=== PATIENT | female | born 2000 | race Caucasian/White ===

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

== ENCOUNTER → 2020-01-15 09:23 | Outpatient (BNVA) | payer MEDICAID, SELFPAY | PROVIDERS: Family Provider Family Medicine; PCP Family Medicine; Visit Provider Obstetrics & Gynecology | DX: Z34.92 Encounter for supervision of normal pregnancy, unspecified, second trimester (principal); Z3A.20 20 weeks gestation of pregnancy | CPT/HCPCS: 76805 ==

== ENCOUNTER → 2020-02-13 13:07 | Outpatient (BNVA) | payer MEDICAID, SELFPAY | PROVIDERS: Family Provider Family Medicine; PCP Family Medicine; Visit Provider Obstetrics & Gynecology | DX: Z36.89 Encounter for other specified antenatal screening (principal) | CPT/HCPCS: 76816 ==

== ENCOUNTER → 2020-02-15 10:30 | Outpatient (BNVA) | payer MEDICAID, SELFPAY | PROVIDERS: Family Provider Family Medicine; PCP Family Medicine; Visit Provider Obstetrics & Gynecology | DX: O09.92 Supervision of high risk pregnancy, unspecified, second trimester (principal) | CPT/HCPCS: 82950; 84315 ==

== ENCOUNTER → 2020-03-13 10:31 | Outpatient (BNVA) | payer MEDICAID, SELFPAY | PROVIDERS: Family Provider Family Medicine; PCP Family Medicine; Visit Provider Obstetrics & Gynecology | DX: O09.93 Supervision of high risk pregnancy, unspecified, third trimester (principal) | CPT/HCPCS: 76816; 84315; 85027 ==

== ENCOUNTER → 2020-04-11 13:37 | Outpatient (BNVA) | payer MEDICAID, SELFPAY | PROVIDERS: Family Provider Family Medicine; PCP Family Medicine; Visit Provider Obstetrics & Gynecology | DX: Z34.90 Encounter for supervision of normal pregnancy, unspecified, unspecified trimester (principal) | CPT/HCPCS: 76816 ==

== ENCOUNTER 2020-04-11 15:25 | Outpatient (CLI) | payer MEDICAID, SELFPAY ==
[2020-04-11 15:36] VITALS: BP 133/65; PULSE 114
[2020-04-11 15:40] VITALS: RESP 18; TEMP 36.7
[2020-04-11 15:41] VITALS: BMI 53.4
[2020-04-11 15:58] VITALS: BP 131/59; PULSE 100
== END 2020-04-11 16:16 | disposition home or self-care (01) ==
LOC: OPOB 15:28 → OBGYN 15:29
PROVIDERS: Family Provider Family Medicine; PCP Family Medicine; Visit Provider Obstetrics & Gynecology
DX: O24.419 Gestational diabetes mellitus in pregnancy, unspecified control (principal); Z3A.00 Weeks of gestation of pregnancy not specified
CPT/HCPCS: 59025; 84315; 99211

== ENCOUNTER 2020-04-18 14:00 | Outpatient (CLI) | payer MEDICAID, SELFPAY ==
[2020-04-18 14:27] VITALS: BP 134/68; PULSE 109; RESP 18; TEMP 37
[2020-04-18 14:34] VITALS: BMI 54.6
[2020-04-18 14:41] VITALS: BP 126/64; PULSE 112
[2020-04-18 14:56] VITALS: BP 133/59; PULSE 101
--- NOTE | 2020-04-18 14:57 | PM.ACPR ---
NST (Non-Stress Test) NST Due date: 06/07/20 Gestational age (weeks): 33 Test: NST Fetus Fetus 1: Baseline FHR BMP:: 140 Variability: Moderate Accelerations: Present Decelerations: None Reacticity: Reactive Interpretation/Plan Interpretation by: Humphrey Christie Time Out Is a Time Out required?: No
[2020-04-18 15:01] VITALS: BP 133/59; PULSE 101; RESP 18; TEMP 37
== END 2020-04-18 15:00 | disposition home or self-care (01) ==
LOC: OPOB 14:16 → OBGYN 14:18
PROVIDERS: Family Provider Family Medicine; PCP Family Medicine; Visit Provider Obstetrics & Gynecology
DX: O24.419 Gestational diabetes mellitus in pregnancy, unspecified control (principal); Z3A.00 Weeks of gestation of pregnancy not specified
CPT/HCPCS: 12345; 59025

== ENCOUNTER 2020-04-25 14:47 | Outpatient (CLI) | payer MEDICAID, SELFPAY ==
[2020-04-25 15:13] VITALS: BP 91/51; PULSE 118
[2020-04-25 15:18] VITALS: BP 87/68; PULSE 112
[2020-04-25 15:30] VITALS: BMI 51.2
== END 2020-04-25 15:35 | disposition home or self-care (01) ==
LOC: OPOB 14:54 → OBGYN 04-28 09:46
PROVIDERS: Family Provider Family Medicine; PCP Family Medicine; Visit Provider Obstetrics & Gynecology
DX: O24.419 Gestational diabetes mellitus in pregnancy, unspecified control (principal); Z3A.00 Weeks of gestation of pregnancy not specified
CPT/HCPCS: 59025; 84315

== ENCOUNTER 2020-05-02 11:00 | Outpatient (CLI) | payer MEDICAID, SELFPAY ==
[2020-05-02 11:00] VITALS: BMI 52.7
[2020-05-02 11:10] VITALS: BP 119/56; PULSE 107
[2020-05-02 11:13] VITALS: RESP 17; TEMP 36.8
[2020-05-02 11:30] VITALS: BP 123/61; PULSE 107
== END 2020-05-02 11:40 | disposition home or self-care (01) ==
LOC: OPOB 11:05 → OBGYN 11:06
PROVIDERS: Family Provider Family Medicine; PCP Family Medicine; Visit Provider Obstetrics & Gynecology
DX: O24.419 Gestational diabetes mellitus in pregnancy, unspecified control (principal); Z3A.00 Weeks of gestation of pregnancy not specified
CPT/HCPCS: 59025; 99211

== ENCOUNTER → 2020-05-06 08:39 | Outpatient (BNVA) | payer MEDICAID, SELFPAY | PROVIDERS: Family Provider Family Medicine; PCP Family Medicine; Visit Provider Obstetrics & Gynecology | DX: O09.893 Supervision of other high risk pregnancies, third trimester (principal) | CPT/HCPCS: 76816; 76819 ==

== ENCOUNTER 2020-05-06 09:50 | Outpatient (CLI) | payer MEDICAID, SELFPAY ==
[2020-05-06 09:50] VITALS: BMI 54.6
[2020-05-06 10:00] VITALS: BP 132/63; PULSE 122; RESP 16; TEMP 36.7
[2020-05-06 10:21] VITALS: BP 103/44; PULSE 104
== END 2020-05-06 10:35 | disposition home or self-care (01) ==
LOC: OPOB 09:52 → OBGYN 09:55
PROVIDERS: Family Provider Family Medicine; PCP Family Medicine; Visit Provider Obstetrics & Gynecology
DX: O24.419 Gestational diabetes mellitus in pregnancy, unspecified control (principal); Z3A.00 Weeks of gestation of pregnancy not specified
CPT/HCPCS: 59025; 84315; 87077; 87081; 87184; 99211

== ENCOUNTER 2020-05-09 14:45 | Outpatient (CLI) | payer MEDICAID, SELFPAY ==
[2020-05-09 14:57] VITALS: BMI 54.8
[2020-05-09 15:12] VITALS: BP 76/56; PULSE 105
[2020-05-09 15:14] VITALS: BP 85/53; PULSE 100
== END 2020-05-09 15:23 | disposition home or self-care (01) ==
LOC: OPOB 14:52 → OBGYN 14:52
PROVIDERS: Family Provider Family Medicine; PCP Family Medicine; Visit Provider Pharmacist
DX: O24.419 Gestational diabetes mellitus in pregnancy, unspecified control (principal); Z3A.00 Weeks of gestation of pregnancy not specified
CPT/HCPCS: 59025; 99211

== ENCOUNTER 2020-05-13 13:34 | Outpatient (CLI) | payer MEDICAID, SELFPAY ==
[2020-05-13 13:45] VITALS: BP 0/0
[2020-05-13 13:46] VITALS: BP 120/60; PULSE 112
[2020-05-13 14:03] VITALS: BP 127/72; PULSE 107
[2020-05-13 14:04] VITALS: BMI 54.6
== END 2020-05-13 14:21 | disposition home or self-care (01) ==
LOC: OPOB 13:39 → OBGYN 13:40
PROVIDERS: Family Provider Family Medicine; PCP Family Medicine; Visit Provider Obstetrics & Gynecology
DX: O24.419 Gestational diabetes mellitus in pregnancy, unspecified control (principal)
CPT/HCPCS: 59025; 99211

== ENCOUNTER 2020-05-16 11:50 | Outpatient (CLI) | payer MEDICAID, SELFPAY ==
--- NOTE | 2020-05-16 12:00 | PM.ACPR ---
NST (Non-Stress Test) NST : 1 Para: 0 Due date: 06/03/20 Gestational age (weeks): 37 Indications: Diet controlled gestational diabetes in third trimester at 37-3/7 weeks gestation Test: NST Time: 12:01 Length of test in Minutes: 37 Contractions: None Fetus Fetus 1: Baseline FHR BMP:: 140 Variability: Moderate Accelerations: Present Decelerations: None Reacticity: Reactive Interpretation/Plan Interpretation by: Gurinder Olmedo Comments: Reactive NST Time Out Is a Time Out required?: No
[2020-05-16 12:01] VITALS: BP 143/68; PULSE 101; BMI 53.4
[2020-05-16 12:24] VITALS: RESP 17; TEMP 36.7
[2020-05-16 12:34] VITALS: BP 104/55; PULSE 93
== END 2020-05-16 12:39 | disposition home or self-care (01) ==
LOC: OPOB 11:56
PROVIDERS: Family Provider Family Medicine; PCP Family Medicine; Visit Provider Obstetrics & Gynecology
DX: O24.410 Gestational diabetes mellitus in pregnancy, diet controlled (principal); Z3A.37 37 weeks gestation of pregnancy
CPT/HCPCS: 12345; 59025; 84315

== ENCOUNTER 2020-05-20 09:03 | Outpatient (CLI) | payer MEDICAID, SELFPAY ==
[2020-05-20] VITALS (20 sets, daily range): BP systolic 0–165; BP diastolic 0–104; PULSE 92–126; RESP 18; TEMP 36.8; BMI 45.8
[2020-05-20 11:19] LABS: Add Urine Microscopic? NO
[2020-05-20 11:19] LABS: Basophils # 0.1 10^3/uL (0.0-0.1); Basophils % 0.6 %; Eosinophils # 0.1 10^3/uL (0.0-0.8); Eosinophils % 0.9 %; Hematocrit 39.6 % (37.0-47.0); Hemoglobin 12.3 g/dL (11.5-15.3); Lymphocytes # 1.6 10^3/uL (1.5-6.5); Lymphocytes % 18.4 %; Mean Corpuscular HGB Conc 31.1 g/dL (30.0-36.0); Mean Corpuscular Volume 93.4 fL (81-99); Mean Platelet Volume 10.3 fL (7.4-10.4); Monocytes # 0.9 10^3/uL (0.2-0.9); Monocytes % 10.2 %; Neutrophils # 5.94 10^3/uL (1.8-8.0); Neutrophils % 69.1 %; Nucleated Red Blood Cells % 0 %; Platelet Count 284 10^3/cmm (130-400); Red Blood Count 4.24 10^6/uL (4.1-5.3); Red Cell Distribution Width 12.8 % (12.1-15.1); White Blood Count 8.6 10^3/uL (4.5-13.0)
[2020-05-20 11:21] LABS: Blood Urine Neg (Negative); Glucose Urine UA Trace (Normal); Ketones Urine Negative (Negative); Protein Urine Neg (Negative); Specific Gravity, Urine 1.015 (1.005-1.030); Urine Appearance Clear (CLEAR); Urine Color Yellow (Yellow); pH Urine 5 (5-7)
[2020-05-20 11:22] LABS: Bilirubin Urine Neg (Negative); Leukocyte Esterase Urine Negative (Negative); Nitrate Urine Negative (Negative); Urobilinogen Urine Norm (Negative)
[2020-05-20 11:38] LABS: Alanine Aminotransferase 19 U/L (0-33); Albumin Level 3.2 g/dL (3.5-5.2); Alkaline Phosphatase 128 IU/L (35-105); Aspartate Amino Transferase 14 U/L (0-32); Blood Urea Nitrogen 9 mg/dL (6-20); Calcium 8.7 mg/dL (8.5-10.5); Carbon Dioxide 18 mmol/L (22-29); Chloride 105 mmol/L (98-107); Globulin 3.2 g/dL (1.3-4.6); Glomerular Filtration Rate 283.6 mL/min (90-130); Glucose 91 mg/dL (65-115); Osmolality Calculated 276 mOsm/kg (285-295); Sodium 134 mmol/L (136-145); Total Bilirubin 0.2 mg/dL (0.15-1.2); Total Protein 6.4 g/dL (6.6-8.7); Uric Acid 4.6 mg/dL (2.4-5.7)
[2020-05-20 11:41] LABS: Anion Gap 14.8 (5-19); Potassium 3.8 mmol/L (3.5-5.1)
[2020-05-20 11:41] LABS: Urine Creatinine 70 mg/dL (28-217); Urine Protein Random 15 mg/dL
[2020-05-20 11:42] LABS: UPRO/UCREAT Ratio 0.21 mg/mg CR
[2020-05-21 10:57] LABS: Coronavirus Lab Test PTC Negative
== END 2020-05-20 12:19 | disposition home or self-care (01) ==
LOC: OPOB 09:07 → OBGYN 09:07
PROVIDERS: PCP Family Medicine; Visit Provider Obstetrics & Gynecology
DX: O24.419 Gestational diabetes mellitus in pregnancy, unspecified control (principal); Z3A.38 38 weeks gestation of pregnancy
CPT/HCPCS: 36415; 36416; 59025; 80053; 81003; 82570; 82962; 84156; 84315; 84550; 85025; 87635

== ENCOUNTER → 2020-05-27 08:43 | Outpatient (BNVA) | payer MEDICAID, SELFPAY | PROVIDERS: PCP Family Medicine; Visit Provider Obstetrics & Gynecology | DX: O24.410 Gestational diabetes mellitus in pregnancy, diet controlled (principal); O36.63X0 Maternal care for excessive fetal growth, third trimester, not applicable or unspecified; O09.92 Supervision of high risk pregnancy, unspecified, second trimester; O99.210 Obesity complicating pregnancy, unspecified trimester; O99.820 Streptococcus B carrier state complicating pregnancy; B95.1 Streptococcus, group B, as the cause of diseases classified elsewhere; Z3A.39 39 weeks gestation of pregnancy | CPT/HCPCS: 76816; 84315 ==

== ENCOUNTER 2020-05-29 07:30 | Observation (INO) | payer MEDICAID, SELFPAY ==
[2020-05-29] VITALS (53 sets, daily range): BP systolic 0–142; BP diastolic 0–79; PULSE 85–135; RESP 16–20; TEMP 36.8–37; O2SAT 97–98; BMI 45.7
[2020-05-29 08:29] LABS: Glucose Point of Care 106 mg/dL (70-110)
[2020-05-29 08:52] LABS: Basophils % 0.3 %; Eosinophils # 0.1 10^3/uL (0.0-0.8); Eosinophils % 0.6 %; Hematocrit 36.1 % (37.0-47.0); Hemoglobin 12.2 g/dL (11.5-15.3); Lymphocytes # 1.3 10^3/uL (1.5-6.5); Lymphocytes % 11.7 %; Mean Corpuscular HGB Conc 33.8 g/dL (30.0-36.0); Mean Corpuscular Volume 85.7 fL (81-99); Mean Platelet Volume 10.4 fL (7.4-10.4); Monocytes # 0.8 10^3/uL (0.2-0.9); Monocytes % 6.8 %; Neutrophils # 9.08 10^3/uL (1.8-8.0); Neutrophils % 79.7 %; Nucleated Red Blood Cells % 0 %; Platelet Count 298 10^3/cmm (130-400); Red Blood Count 4.21 10^6/uL (4.1-5.3); White Blood Count 11.4 10^3/uL (4.5-13.0)
[2020-05-29] MEDS: dextrose 5%-lactated ringers 1,000 ML 125 ML IV (08:54)
[2020-05-29] MEDS: miSOPROStol 100 mcg tablet 25 MCG VAGINAL ×3 (08:55→17:41)
[2020-05-29] MEDS: clindamycin 900 MG/50 ML PREMIX 100 MG IV ×3 (08:55→23:26)
[2020-05-29 13:17] LABS: Glucose Point of Care 124 mg/dL (70-110)
[2020-05-29 17:29] LABS: Glucose Point of Care 85 mg/dL (70-110)
[2020-05-29 21:36] LABS: Glucose Point of Care 85 mg/dL (70-110)
[2020-05-30] VITALS (51 sets, daily range): BP systolic 0–181; BP diastolic 0–100; PULSE 77–102; RESP 16–18; TEMP 36.8–36.9; O2SAT 99
[2020-05-30 01:39] LABS: Glucose Point of Care 97 mg/dL (70-110)
--- NOTE | 2020-05-30 01:42 | PC.NURSE ---
PT BLOOD PRESSURE TAKEN AT 0124 WAS INACCURATE; BLOOD PRESSURE CUFF HAD FALLEN DOWN AND WAS WRAPPED AROUND PT'S BENT ELBOW. CUFF WAS REPOSITIONED AROUND PT'S FOREARM AND BP WAS RETAKEN FOUR MINUTES LATER, NOTED TO BE IN NORMAL RANGE. PT IS ASYMPTOMATIC OF ANY ELEVATED BP ISSUES, RESTING IN BED, ALL OTHER VS WNL. PT RATES PAIN AT 3 AT 0124.
[2020-05-30 05:36] LABS: Glucose Point of Care 82 mg/dL (70-110)
[2020-05-30] MEDS: oxytocin 30 UNIT/500 ML BAG IV (07:45)
[2020-05-30] MEDS: clindamycin 900 MG/50 ML PREMIX 100 MG IV (07:46)
[2020-05-30 09:41] LABS: Glucose Point of Care 90 mg/dL (70-110)
[2020-05-30 13:38] LABS: Glucose Point of Care 89 mg/dL (70-110)
[2020-05-30] MEDS: dextrose 5%-lactated ringers 1,000 ML 125 ML IV (13:38)
--- NOTE | 2020-05-30 14:05 | PC.NURSE ---
Bpm Architect in room assessing patient. Patient states she would like another ultrasound to determine if baby is big enough to just go ahead and do the csection Bpm Architect educated patient and significant other about the risks of csection and patient and significant other are requesting to speak with the doctor at this time about csection.
--- NOTE | 2020-05-30 14:09 | US_ITS ---
WS: [id number] ULTRASOUND OB LIMITED TECHNIQUE: Limited ultrasound examination of the fetus. CLINICAL INFORMATION: EFW COMPARISON: May 27, 2020 FINDINGS: Technically difficult examination due to body habitus. Cervix not studied. Single interuterine gestation. presentation is vertex Placental location is anterior. Placenta grade: 1 heart rate 147 BPM. Anatomy: BDP: 9.4 cm = 38w3d HC: 35.1 cm = 40w6d AC: 36.4 cm = 40w2d FEMUR LENGTH: 7.7 cm = 39w4d Estimated weight: 3951 g 8 lbs. 11 oz. greater than 90th percentile EGA by ultrasound: 39w6d NETO by ultrasound: 05/31/2020 US/US OB limited [id number] IMPRESSION: Technically difficult examination due to body habitus. 1. Single intrauterine gestation with estimated gestational age 39 weeks 6 day s with estimated delivery May 31, 2020 2. Normal amniotic fluid volume. 3. Placenta is anterior. 4. Estimated weight is 8 lbs. 11 oz.
--- NOTE | 2020-05-30 14:59 | PC.NURSE ---
Patient voiced concerns about wanting to leave hospital against medical advice. Wood Heel Back Liner educated patient on the risk of leaving against medical advice. Patient was calling her mother to talk with her mother about leaving against medical advice.
--- NOTE | 2020-05-30 15:25 | PC.NURSE ---
Against Medical Advice Discussed with physician that patient would like to leave AMA. Dr. Christie states that she can leave AMA. Refinery Operator [employer] requested that physician come to unit to assess patient and speak with her about her concerns. Dr. Christie states I'm not coming over there to try and talk her out of it, if she wants to leave let her leave Refinery Operator [employer] then asked if she would be allowed to continue with the clinic for this and Dr. Christie states to have patient schedule a follow up with the clinic on Tuesday but after this she will be fired from the clinic. Above information relayed immediately to the patient. Patient states she would still like to leave AMA. Discussed risks with patient including stillbirth. Patient states she would still like to leave. Refinery Operator [employer] requests that patient allow us to monitor baby for 30 minutes after pitocin was turned off and patient agreed. Pitocin off at 1514. Patient's significant other off the floor at 1524 to go wait in the car. Will continue to monitor and call Dr. Christie before patient leaves.
--- NOTE | 2020-05-30 15:54 | PC.NURSE ---
Against Medical Advice IV removed. Discussed risks of stillbirth again in detail. Discussed labor signs and reasons to return to OB and also discussed appointment editorial writer made for patient on 06/02@[address] Christie in room to see patient shortly before patient left. Patient still requesting to leave AMA. All paperwork signed.
--- NOTE | 2020-06-05 18:02 | P.PN_ITS ---
Subjective Subjective: Interval history: 20-year-old female with estimated gestational age at 39 weeks, complicated by gestational diabetes. Admitted for induction Vitals/I&O/Wt Last Vital Signs Temp 98.2 F 05/30/20 15:50 Pulse 97 05/30/20 15:50 Resp 16 05/30/20 15:50 BP 153/82 05/30/20 15:50 Pulse Ox 99 05/30/20 15:50 Data : 05/29/20 08:10 A&P Assessment and plan (1) Diabetes in : The patient left the hospital against medical advise after induction has been started. Status: Acute Qualifiers: Diabetes in type: gestational Gestational diabetes mellitus control: diet-controlled Trimester: third trimester Qualified Code(s): O24.410 - Gestational diabetes mellitus in , diet controlled (2) Group B Streptococcus carrier state affecting : Status: Acute (3) macrosomia during in third trimester: Status: Acute Qualifiers: Fetus number: single or unspecified fetus Qualified Code(s): O36.63X0 - Maternal care for excessive growth, third trimester, not applicable or unspecified Attestations Medical Necessity Statement*: In my professional opinion per admitting d iagnosis Coding Level of Care Code Acute Face And Fill Packer for [facility] Fwd Diagnoses Diabetes in O24.410 Diabetes in type: gestational Gestational diabetes mellitus control: diet-controlled Trimester: third trimester Group B Streptococcus carrier state affecting O99.820 macrosomia during in third trimester O36.63X0 Fetus number: single or unspecified fetus
== END 2020-05-30 15:50 | disposition left against medical advice (07) ==
LOC: OPOB 08:33 → OBGYN 05-30 15:20
PROVIDERS: Admitting Provider Obstetrics & Gynecology; PCP Family Medicine; Visit Provider Obstetrics & Gynecology
DX: O24.419 Gestational diabetes mellitus in pregnancy, unspecified control (principal); O61.9 Failed induction of labor, unspecified; Z3A.39 39 weeks gestation of pregnancy
CPT/HCPCS: 12345; 36415; 36416; 59025; 76815; 82962; 85025; 96361; 96365; 96366; G0378; J3490

== ENCOUNTER 2020-05-31 12:40 | Outpatient (CLI) | payer MEDICAID, SELFPAY ==
[2020-05-31 12:51] VITALS: BP 100/75; PULSE 118
[2020-05-31 12:54] VITALS: RESP 18; TEMP 36.7; BMI 46.0
[2020-05-31 13:03] VITALS: BP 61/47; PULSE 110
[2020-05-31 13:11] VITALS: BP 72/39; PULSE 104
[2020-05-31 13:13] VITALS: BP 135/71; PULSE 100
[2020-05-31 13:20] VITALS: BP 135/71; PULSE 100; RESP 18
== END 2020-05-31 13:25 | disposition home or self-care (01) ==
LOC: OPOB 12:46 → OBGYN 12:47
PROVIDERS: PCP Family Medicine; Visit Provider Obstetrics & Gynecology
DX: O36.8190 Decreased fetal movements, unspecified trimester, not applicable or unspecified (principal); Z3A.00 Weeks of gestation of pregnancy not specified
CPT/HCPCS: 59025; 99211

== ENCOUNTER 2020-06-05 18:25 | Inpatient (IN) | payer MEDICAID, SELFPAY ==
[2020-06-05] VITALS (14 sets, daily range): BP systolic 0–149; BP diastolic 0–80; PULSE 88–118; RESP 16; TEMP 36.8; BMI 55.9
[2020-06-05 19:42] LABS: Glucose Point of Care 89 mg/dL (70-110)
[2020-06-05 20:33] LABS: Basophils % 0.4 %; Eosinophils # 0.1 10^3/uL (0.0-0.8); Eosinophils % 0.7 %; Hematocrit 37.2 % (37.0-47.0); Hemoglobin 12.3 g/dL (11.5-15.3); Lymphocytes # 2.1 10^3/uL (1.5-6.5); Lymphocytes % 19.4 %; Mean Corpuscular HGB Conc 33.1 g/dL (30.0-36.0); Mean Corpuscular Hemoglobin 28.8 pg (28.0-34.0); Mean Corpuscular Volume 87.1 fL (81-99); Mean Platelet Volume 10.6 fL (7.4-10.4); Monocytes % 8.8 %; Neutrophils # 7.55 10^3/uL (1.8-8.0); Nucleated Red Blood Cells % 0 %; Platelet Count 325 10^3/cmm (130-400); Red Blood Count 4.27 10^6/uL (4.1-5.3); White Blood Count 10.8 10^3/uL (4.5-13.0)
[2020-06-05] MEDS: dextrose 5%-sod chloride 0.9% 1,000 ML 125 ML IV (20:34)
[2020-06-05] MEDS: clindamycin 900 MG/50 ML PREMIX 100 MG IV (20:34)
[2020-06-05] MEDS: miSOPROStol 100 mcg tablet 25 MCG VAGINAL (22:50)
[2020-06-06] VITALS (132 sets, daily range): BP systolic 0–145; BP diastolic 0–92; PULSE 80–118; RESP 15–20; TEMP 36.6–36.8; O2SAT 85–99
[2020-06-06 00:21] LABS: Glucose Point of Care 115 mg/dL (70-110)
[2020-06-06] MEDS: miSOPROStol 100 mcg tablet 25 MCG VAGINAL ×2 (02:54→07:18)
[2020-06-06] MEDS: clindamycin 900 MG/50 ML PREMIX 100 MG IV ×3 (04:19→20:10)
[2020-06-06] MEDS: dextrose 5%-sod chloride 0.9% 1,000 ML 125 ML IV ×2 (04:25→11:56)
[2020-06-06 04:29] LABS: Glucose Point of Care 102 mg/dL (70-110)
[2020-06-06 08:09] LABS: Glucose Point of Care 94 mg/dL (70-110)
--- NOTE | 2020-06-06 08:10 | P.PN_ITS ---
Subjective Subjective: Interval history: 30-year-old female with an estimated gestational age of 40 weeks 3 days with gestational diabetes. Admitted for induction for the second time. Vitals/I&O/Wt Last Vital Signs Temp 97.9 F 06/06/20 04:00 Pulse 84 06/06/20 07:47 Resp 15 06/06/20 04:00 BP 120/65 06/06/20 07:47 06/05/20 06/06/20 06/06/20 22:59 06:59 14:59 Intake Total 50 / 50 981.25 / 1031.25 50 / 50 Balance 50 / 50 981.25 / 1031.25 50 / 50 Weight last 48 hrs Weight 134.263 kg Physical Exam Narrative: EXAM NARRATIVE: GA: Alert and oriented ?3. Lungs: Clear to auscultation bilaterally. Heart: Regular rhythm and rate. Abdomen: Gravid, fundal height greater than dates, nontender. STUDIO TECHNICIAN VIDEO OPERATOR: SVE; dilation: 2-3 cm, effacement: 50 %, station: -3, presentation: Vertex, membranes: Intact. Extremities: no edema, no cyanosis, no calves pain. heart tracing: Basal rate: 140s bpm, Variability: Moderate, Accelerations: Present, Decelerations: Absent, Contractions: Every 4 minutes. Data : 06/05/20 19:20 A&P Assessment and plan (1) Diabetes in : Patient admitted yesterday for induction due to gestational diabetes for the second time. The first time she left the hospital AGAINST MEDICAL ADVICE. Received the third misoprostol for cervical ripening. heart tracing category 1. Will reassess at noon, 4 hours after the last misoprostol, to start with oxytocin. Status: Acute Qualifiers: Diabetes in type: gestational Gestational diabetes mellitus control: diet-controlled Trimester: third trimester Qualified Code(s): O24.410 - Gestational diabetes mellitus in , diet controlled (2) Positive GBS test: Status: Acute (3) macrosomia during in third trimester: Status: Acute Qualifiers: Fetus number: single or unspecified fetus Qualified Code(s): O36.63X0 - Maternal care for excessive growth, third trimester, not applicable or unspecified (4) Obesity affecting , antepartum: Status: Acute Attestations Medical Necessity Statement*: In my professional opinion per admitting diagnosis Coding Level of Care Code Acute Wine Blender for Chg Fwd Diagnoses Diabetes in O24.410 Diabetes in type: gestational Gestational diabetes mellitus control: diet-controlled Trimester: third trimester Positive GBS test B95.1 macrosomia during in third trimester O36.63X0 Fetus number: single or unspecified fetus Obesity affecting , antepartum O99.210
[2020-06-06 12:04] LABS: Glucose Point of Care 91 mg/dL (70-110)
[2020-06-06] MEDS: oxytocin 30 UNIT/500 ML BAG IV (12:31)
--- NOTE | 2020-06-06 16:09 | PM.PN ---
Subjective Subjective: Interval history: 20-year-old, 1, Para 0, with a LMP of 07/21/2019 and an NETO of 06/03/2020 based on 9 week sonogram, which places her at 40 3/7 weeks gestation with gestational diabetes. Vitals/I&O/Wt Last Vital Signs Temp 98.1 F 06/06/20 12:00 Pulse 81 06/06/20 16:00 Resp 18 06/06/20 12:00 BP 134/79 06/06/20 16:00 06/06/20 06/06/20 06/06/20 06:59 14:59 22:59 Intake Total 981.25 / 1031.25 1044.583 / 1044.583 Balance 981.25 / 1031.25 1044.583 / 1044.583 Weight last 48 hrs Weight 134.263 kg Physical Exam Narrative: EXAM NARRATIVE: GA: Alert and oriented ?3. Lungs: Clear to auscultation bilaterally. Heart: Regular rhythm and rate. Abdomen: Gravid, fundal height greater then dates dates, nontender. WATER SUPPLY ENGINEER: SVE; dilation: 3 cm, effacement: 80 %, station: -3, presentation: Vertex, membranes: AROM clear. Extremities: no edema, no cyanosis, no calves pain. heart tracing: Basal rate: 130's bpm, Variability: moderate, Accelerations: Present, Decelerations: absent, Contractions: Every 3 minutes. Data : 06/05/20 19:20 A&P Assessment and plan (1) Diabetes in : Patient admitted for induction due to gestational diabetes. Progressing slowly, oxytocin 7 units. heart tracing category 1. scalp stimulation reassuring. Artificial rupture membranes shows clear fluids. scalp Electro and intrauterine pressure catheter placed to better monitor heart tracing and contractions due to patient's habitus. Will continue with induction. Anticipate vaginal delivery. Status: Acute Qualifiers: Diabetes in type: gestational Gestational diabetes mellitus control: diet-controlled Trimester: third trimester Qualified Code(s): O24.410 - Gestational diabetes mellitus in , diet controlled (2) Obesity affecting , antepartum: Status: Acute (3) Group B Streptococcus carrier state affecting : Status: Acute Attestations Medical Necessity Statement*: In my professional opinion per admitting diagnosis. Coding Level of Care Code Acute Supervisor Pyrotechnic Loading for [facility] Fwd Diagnoses Diabetes in O24.410 Diabetes in type: gestational Gestational diabetes mellitus control: diet-controlled Trimester: third trimester Obesity affecting , antepartum O99.210 Group B Streptococcus carrier state affecting O99.820
[2020-06-06 16:52] LABS: Glucose Point of Care 86 mg/dL (70-110)
--- NOTE | 2020-06-06 17:05 | PC.NURSE ---
Discussed pain management in forms of fentanyl every hour when desired and epidural when 5cm per Dr. Christie's orders. Patient verbalized understanding but does not want any medication at this time.
[2020-06-06] MEDS: fentaNYL 50 mcg/mL INJ 2mL IV ×2 (18:00→19:03)
[2020-06-06] MEDS: lactated ringers 1,000 ML 999 ML IV ×2 (19:19→20:22)
[2020-06-06 20:11] LABS: Glucose Point of Care 90 mg/dL (70-110)
--- NOTE | 2020-06-06 20:50 | P.ANESASSM_ITS ---
Pre-Anesthetic Assessment Pre-Anesthetic Assessment: Height/Weight: Height 1.55 m Weight 134.263 kg Temp Pulse Resp BP Pulse Ox 98.2 F 107 H 16 118/57 85 L 06/06/20 16:00 06/06/20 20:47 06/06/20 19:03 06/06/20 20:47 06/06/20 20:45 Preop Diagnosis: IUP Proposed Procedure: labor epidural Familial anesthetic complications: denies Was Beta Vimal taken within 24 hours: N/A Last Intake: 17:00 Social: Social History: No alcohol and No tobacco Exam: Pre-Anes Outpt Exam: alert, oriented x 3 and clear to auscultation bilaterally Airway: Submandibular: WNL Cervical ROM: WNL MP: 2 Pulmonary: Pulmonary: None reported CV/HEM: CV/HEM: None reported : : None reported Hepatic: Hepatic: None reported GI: GI: GERD Metabolic: Metabolic: DM (gestational DM) and Morbid obesity Musc/skel: Musc/skel: None reported Neuropsych: Neuropsych: None reported Anesthetic Plan: ASA status: 2 Anesthesia: Anesthesia Evaluation and Eval. for regional block Meds/Allergies 2 Current Medications: Current Medications Generic Name Dose Route Start Last Admin Trade Name Freq PRN Reason Stop Dose Admin Fentanyl 25 - 100 mcg 06/05/20 19:54 06/06/20 19:03 Fentanyl 50 Mcg/ Ml Inj 2ml IV 50 mcg Q1H PRN Administration SEVERE PAIN Clindamycin HCl/De xtrose 900 mg in 50 mls @ 100 mls/hr 06/05/20 20:00 06/06/20 20:10 Cleocin IV 100 mls/hr Q8H RAMIN Administration Protocol Dextrose/Sodium Ch loride 1,000 mls @ 125 m ls/hr 06/05/20 19:58 06/06/20 11:56 Dextrose 5%-Sod Chloride 0.9% IV 125 mls/hr .Q8H PRN Administration LABOR INDUCTION Oxytocin 30 unit in 500 ml s @ 1 mls/hr 06/06/20 12:30 06/06/20 17:30 Pitocin IV 9 milliunit/min .Q24H RAMIN 9 mls/hr Titration Protocol 1 MILLIUNIT/MIN Ropivacaine 200 mg in 100 mls @ 13 mls/hr 06/06/20 19:15 06/06/20 20:47 Naropin Premix EPIDURAL 13 mls/hr .Q7H42M RAMIN Administration Lactated Ringer's 1,000 mls @ 999 m ls/hr 06/06/20 19:07 06/06/20 20:22 Lactated Ringers IV 999 mls/hr .Q1H1M PRN Administration See label comment s PFSH Anesthesia PFSH: Medical History Irregular periods/menstrual cycles Surgical History H/O ovarian cystectomy (11/30/17) Left H/O unilateral oophorectomy (~11/30/17) Right--performed by Dr. Christie at [facility] in [place], [place] H/O unilateral salpingectomy Right S/p bilateral myringotomy with tube placement Family History Grandmother Diabetes Maternal grandmother Hypertension Maternal grandmother Heart disease Maternal great grandmother Stroke Maternal grandmother Hyperlipidemia Maternal grandmother Father Diabetes Grandfather Hypertension great grandfather Mother Heart disease Denies family history of Colon cancer Ovarian cancer Breast cancer Family history of thyroid problem Uterine cancer Social History Smoking and tobacco status: never smoked Alcohol intake: never Female Reproductive History: : 1 Data Anesthesia CBC & Chem 7: 06/05/20 19:20 Other Labs: Laboratory Results - last 48 hr 06/05/20 06/05/20 06/06/20 19:20 19:23 00:17 WBC 10.8 RBC 4.27 Hgb 12.3 Hct 37.2 MCV 87.1 MCH 28.8 MCHC 33.1 RDW 13.0 Plt Count 325 MPV 10.6 H Neut % (Auto) 70.0 Lymph % (Auto) 19.4 [place] % (Auto) 8.8 Eos % (Auto) 0.7 Baso % (Auto) 0.4 Neut # (Auto) 7.55 Lymph # (Auto) 2.1 [place] # (Auto) 1.0 H Eos # (Auto) 0.1 Baso # (Auto) 0.0 Nucleated RBC % (auto) 0 Nucleated RBCs # 0.0 POC Glucose 89 115 06/06/20 06/06/20 06/06/20 04:18 08:05 12:00 WBC RBC Hgb Hct MCV MCH MCHC RDW Plt Count MPV Neut % (Auto) Lymph % (Auto) [place] % (Auto) Eos % (Auto) Baso % (Auto) Neut # (Auto) Lymph # (Auto) [place] # (Auto) Eos # (Auto) Baso # (Auto) Nucleated RBC % (auto) Nucleated RBCs # POC Glucose 102 94 91 06/06/20 06/06/20 16:48 20:01 WBC RBC Hgb Hct MCV MCH MCHC RDW Plt Count MPV Neut % (Auto) Lymph % (Auto) [place] % (Auto) Eos % (Auto) Baso % (Auto) Neut # (Auto) Lymph # (Auto) [place] # (Auto) Eos # (Auto) Baso # (Auto) Nucleated RBC % (auto) Nucleated RBCs # POC Glucose 86 90 Cardiac Studies: No Data to Display Anesthesia Procedures Date of Procedure: 06/06/20 Epidural: Time Out Performed: Yes Consents Signed: Procedure Consent Consent: requested by attending/covering physician and risks and benefits reviewed Lumbar Level: L3-L4 Epidural position: sitting Epidural procedure: sterile prep of area, 1% lidocaine to numb the area (3 cc ), 18 g needle (L3-L4 ), negative for paresthesia passed, neg for paresthesia, test dose given (5 cc ), sterile dressing applied, L.U.D. no apparent complications and 0.2% Ropiavacaine @ mls/hr (10 mls/hr ) Additional Comments: 2 % lido 8 cc RYAN @ 9 cm catheter threaded to 14 cm at the skin. vss see OBYX
[2020-06-06] MEDS: ondansetron 2 mg/ML SDV 2 mL 4 MG IVP (21:25)
[2020-06-07] VITALS (89 sets, daily range): BP systolic 0–155; BP diastolic 0–84; PULSE 91–133; RESP 14–20; TEMP 36.6–37.1; O2SAT 96–100
[2020-06-07 00:13] LABS: Glucose Point of Care 84 mg/dL (70-110)
[2020-06-07] MEDS: dextrose 5%-sod chloride 0.9% 1,000 ML 125 ML IV ×2 (00:16→09:10)
[2020-06-07] MEDS: clindamycin 900 MG/50 ML PREMIX 100 MG IV (04:06)
[2020-06-07 04:07] LABS: Glucose Point of Care 122 mg/dL (70-110)
[2020-06-07 08:09] LABS: Glucose Point of Care 117 mg/dL (70-110)
--- NOTE | 2020-06-07 09:36 | PM.PN ---
Subjective Subjective: Interval history: 20-year-old, 1, Para 0, with a LMP of 07/21/2019 and an NETO of 06/03/2020 based on 9 week sonogram, which places her at 40 3/7 weeks gestation with gestational diabetes. Vitals/I&O/Wt Last Vital Signs Temp 98.0 F 06/07/20 09:16 Pulse 114 H 06/07/20 09:30 Resp 16 06/07/20 09:16 BP 127/83 06/07/20 09:30 Pulse Ox 93 06/06/20 22:36 06/06/20 06/07/20 06/07/20 22:59 06:59 14:59 Intake Total 2105.050 / 3149.633 243.15 / 3392.783 2038.3 / 2037.3 Output Total 500 / 500 Balance 2105.050 / 3149.633 -256.85 / 2892.783 8.3 / 2037.3 Weight last 48 hrs Weight 134.263 kg Physical Exam Narrative: EXAM NARRATIVE: GA: Alert and oriented ?3. Lungs: Clear to auscultation bilaterally. Heart: Regular rhythm and rate. Abdomen: Gravid, fundal height larger than dates, nontender. MAILING CLERK: SVE; dilation: 10 cm, effacement: 100 %, station: 0, presentation: Vertex, membranes: AROM clear. Extremities: no edema, no cyanosis, no calves pain. heart tracing: Basal rate: 140s bpm, Variability: moderate, Accelerations: Present, Decelerations: Absent, Contractions: Every 4 minutes. Urinary Catheter Management^: Avila Latex: Cath Placed During This Visit: yes, but has since been removed by the nurse Reason for Continuing Indwelling Catheter: Required Immobilization for Trauma or Surgery or Anesthesia Urinary Catheter Date of Insertion: 06/06/20 Urinary Catheter Time of Insertion: 21:15 Date Urinary Catheter Removed: 06/07/20 Time Urinary Catheter Discontinued: 00:49 Data : 06/05/20 19:20 A&P Assessment and plan (1) Diabetes in : Patient admitted for induction due to gestational diabetes. Progressing slowly, oxytocin 7 units. heart tracing category 1. scalp stimulation reassuring. Artificial rupture membranes shows clear fluids. scalp Electro and intrauterine pressure catheter placed to better monitor heart tracing and contractions due to patient's habitus. The patient had been fully dilated for 4 hours adequate contractions but no progression in descend. patient was counseled regarding failure to descend. Recommended low primary transverse delivery, she agreed plan primary low-transverse delivery. Status: Acute Qualifiers: Diabetes in type: gestational Gestational diabetes mellitus control: diet-controlled Trimester: third trimester Qualified Code(s): O24.410 - Gestational diabetes mellitus in , diet controlled (2) Obesity affecting , antepartum: Status: Acute (3) Group B Streptococcus carrier state affecting : Status: Acute Attestations Medical Necessity Statement*: my professional opinion per admitting diagnosis Coding Level of Care Code Acute Finance Officer for [facility] Fwd Diagnoses Diabetes in O24.410 Diabetes in type: gestational Gestational diabetes mellitus control: diet-controlled Trimester: third trimester Obesity affecting , antepartum O99.210 Group B Streptococcus carrier state affecting O99.820
[2020-06-07] MEDS: famotidine 20 mg/2 mL INJ IVP (10:10)
[2020-06-07] MEDS: citric acid-sodium citrate 30 mL UDC PO (10:10)
--- NOTE | 2020-06-07 11:32 | P.OP_ITS ---
Operative Report Date of procedure: June 07, 2020 Pre-op Diagnosis: IUP at 40+3 weeks, gestational diabetes, microsomia, BS positive, failure to descend Post-op diagnosis: same Post-op Findings: male fetus vertex asynclitic presentation, weight 4355 g, 9/10. Procedure Done: primary low-transverse delivery Surgeon: Humphrey Christie M.D. Anesthesia: Epidural Estimated blood loss (mL): 1,000 IV fluids (mL): 1,000 Urine output (mL): 600 Complications: none Condition: stable Disposition: PACU Brief History: 20-year-old female an estimated gestational age of 40 weeks +3 days, complicated by gestational diabetes, macrosomia and GBS positive. She had been admitted for induction at 39 weeks but the patient left AGAINST MEDICAL ADVICE. She was readmitted for induction at 40 weeks +2 days. Procedure: After assuring informed consent, the patient was taken to the operating room and anesthesia was initiated. She was placed in the dorsal supine position with a left lateral tilt. The patient was given Ancef 2 gm intravenously immediately. The abdomen was prepped and draped in the usual sterile manner. A time-out procedure was performed. A Pfannenstiel skin incision was made with the scalpel and carried through to the underlying layer of fascia with the Bovie. The fascia was nicked in the midline and the incision extended laterally with the Lowery scissors. The superior aspect of the fascial incision was then grasped with Marcello clamps and elevated and the underlying rectus muscle dissected off bluntly and sharp with lowery scissors. Attention was then turned to the inferior aspect of the incision which, in similar fashion, was grasped and tented up with Marcello clamps and the rectus muscle dissected bluntly. The rectus muscles were then in the midline and the peritoneum identified, tented up and entered sharply with Metzenbaum scissors. The peritoneal incision was then extended superiorly and inferiorly with good visualization of the bladder. The Gordy O retractor was then inserted and the vesicouterine peritoneum identified, grasped with pickups and entered sharply with Metzenbaum scissors. This incision was then extended laterally and the bladder flap created digitally. The uterus incised in a low transverse fashion with the scalpel. The uterine incision was then extended with the bandage scissors. The infant was then delivered in the cephalic asynclitic presentation atraumatically. The nose and the mouth were suctioned with bulb and the cord clamped and cut. the male infant was handed over to awaiting explosive ordnance handler and nursing personnel. The cord was normal and had three vessels. Amniotic fluid was clear. Apgars 9/10. The placenta was then removed manually and the uterus exteriorized and cleared of all clots and debris. The uterine incision was repaired with 0 Vicryl in a running-locked fashion. A second layer of the same suture was used to obtain excellent hemostasis. The gutters were cleared of all clots. The uterus was then returned to the abdomen. The rectus muscles were approximated with 2-0 plain gut. The fascia was reapproximated with 0 Vicryl in an interrupted running fashion. The skin was closed with Insorb?s subcuticular absorbable cristo. The incision area was infiltrated with Exparel full pain management. The patient tolerated the procedure well. The sponge, lap and needle counts were correct times three.
[2020-06-07] MEDS: metoclopramide 5 mg/mL SDV 2 mL 10 MG IVP (11:49)
--- NOTE | 2020-06-07 11:50 | ANE.PACU2 ---
Inpatient post-anesthesia follow up: Airway intact: Yes Vital signs: Temperature 98.2 F Pulse Rate 105 Respiratory Rate 16 Blood Pressure 128/82 Pulse Oximetry 97 Oxygen Delivery Me thod Room Air Oxygen Flow Rate 3 Fraction of Inspir ed Oxygen Hydration adequate: Yes Nausea and vomiting: No Pain level: 1 Mental status: Baseline
[2020-06-07] MEDS: ketorolac 30 mg/mL INJ IVP ×2 (13:05→20:07)
[2020-06-07] MEDS: dextrose 5%-lactated ringers 1,000 ML 125 ML IV (13:05)
[2020-06-07 13:13] LABS: Glucose Point of Care 104 mg/dL (70-110)
--- NOTE | 2020-06-07 13:16 | PC.NURSE ---
PT TRANSFERRED TO ROOM 204 VIA BED. PT TOLERATED WELL. PT ORIENTED TO ROOM AND CALL LIGHT.
[2020-06-07 22:44] LABS: Glucose Point of Care 109 mg/dL (70-110)
[2020-06-08 00:13] LABS: Mean Corpuscular HGB Conc 32.1 g/dL (30.0-36.0); Mean Corpuscular Hemoglobin 28.7 pg (28.0-34.0); Mean Corpuscular Volume 89.2 fL (81-99); Mean Platelet Volume 10.4 fL (7.4-10.4); Platelet Count 264 10^3/cmm (130-400); Red Blood Count 3.14 10^6/uL (4.1-5.3); Red Cell Distribution Width 13.2 % (12.1-15.1); White Blood Count 15.2 10^3/uL (4.5-13.0)
[2020-06-08 01:45] VITALS: BP 125/72; PULSE 97; RESP 17; O2SAT 96
[2020-06-08 05:39] VITALS: BP 119/70; PULSE 99; RESP 16; O2SAT 96
[2020-06-08] MEDS: prenatal vitamin Capsule 1 CAP PO (09:04)
[2020-06-08] MEDS: docusate sodium 100 mg Capsule PO (09:04)
[2020-06-08] MEDS: ferrous sulfate EC 325 mg Tablet PO (09:04)
[2020-06-08] MEDS: ibuprofen 800 mg tablet PO ×3 (09:04→21:15)
--- NOTE | 2020-06-08 10:00 | P.PN_ITS ---
Subjective Subjective: Interval history: 20-year-old, 1, Para 0, with a LMP of 07/21/2019 status post low transverse delivery of complicated with gestational diabetes. Refers doing fine. Denies pain. Vitals/I&O/Wt Last Vital Signs Temp 98.7 F 06/07/20 21:45 Pulse 99 06/08/20 05:39 Resp 16 06/08/20 05:39 BP 119/70 06/08/20 05:39 Pulse Ox 96 06/08/20 05:39 06/07/20 06/08/20 06/08/20 22:59 06:59 14:59 Intake Total 864.583 / 4105.632 200 / 200 Output Total 475 / 3150 1750 / 4900 800 / 800 Balance 389.583 / 955.632 -1750 / -794.368 -600 / -600 Physical Exam Narrative: EXAM NARRATIVE: GA; alert and oriented x 3 HEENT: normal Breasts: engorged Nipples - skin intact Lungs; clear to auscultation Heart: regular rhythm, no murmurs. Abd: Appropriately tender. BS+. Uterine fundus below umbilicus. No Fundal Tenderness. Iincision clean and dry Perineum: normal lochia. Extremities: no edema, no cyanosis, no tenderness. Urinary Catheter Management^: Avila Latex: Cath Placed During This Visit: yes, but has since been removed by the nurse Reason for Continuing Indwelling Catheter: Required Immobilization for Trauma or Surgery or Anesthesia Urinary Catheter Date of Insertion: 06/06/20 Urinary Catheter Time of Insertion: 21:15 Date Urinary Catheter Removed: 06/07/20 Time Urinary Catheter Discontinued: 00:49 Data : 06/07/20 23:54 A&P Assessment and plan (1) delivery, delivered, current hospitalization: Amy status post primary low-transverse delivery postoperative day 1. She is afebrile and hemodynamically stable. Tolerating diet well. Ambulating without difficulty. Status: Acute (2) Group B Streptococcus carrier state affecting : Status: Acute (3) Large for gestational age fetus affecting management of mother: Status: Acute Qualifiers: Fetus number: single or unspecified fetus Trimester: third trimester Qualified Code(s): O36.63X0 - Maternal care for excessive growth, third trimester, not applicable or unspecified (4) Obesity affecting , antepartum: Status: Acute (5) macrosomia during in third trimester: Status: Acute Qualifiers: Fetus number: single or unspecified fetus Qualified Code(s): O36.63X0 - Maternal care for excessive growth, third trimester, not applicable or unspecified (6) Diabetes in : Status: Acute Qualifiers: Diabetes in type: gestational Gestational diabetes mellitus control: diet-controlled Trimester: third trimester Qualified Code(s): O24.410 - Gestational diabetes mellitus in , diet controlled Attestations Medical Necessity Statement*: my professional opinion for admitting diagnosis. Coding Level of Care Code Acute In Classroom Tutor for Chg Fwd Diagnoses delivery, delivered, current hospitalization O82 Group B Streptococcus carrier state affecting O99.820 Large for gestational age fetus affecting management of mother O36.63X0 Fetus number: single or unspecified fetus Trimester: third trimester Obesity affecting , antepartum O99.210 macrosomia during in third trimester O36.63X0 Fetus number: single or unspecified fetus Diabetes in O24.410 Diabetes in type: gestational Gestational diabetes mellitus control: diet-controlled Trimester: third trimester
[2020-06-08] MEDS: HYDROcodone-acetaminophen 5-325 mg Tablet PO ×2 (16:09→21:14)
[2020-06-08 16:19] VITALS: BP 135/78; PULSE 99; RESP 16
[2020-06-08 21:50] VITALS: BP 136/83; PULSE 102; RESP 18; TEMP 36.6; O2SAT 97
[2020-06-09 06:00] VITALS: BP 127/75; PULSE 102; RESP 18; TEMP 36.6; O2SAT 97
[2020-06-09 09:00] VITALS: BP 117/80; PULSE 93; RESP 17; TEMP 36.8
[2020-06-09] MEDS: ibuprofen 800 mg tablet PO (09:05)
[2020-06-09] MEDS: HYDROcodone-acetaminophen 5-325 mg Tablet PO (09:06)
[2020-06-09] MEDS: ferrous sulfate EC 325 mg Tablet PO (09:06)
[2020-06-09] MEDS: docusate sodium 100 mg Capsule PO (09:06)
[2020-06-09] MEDS: prenatal vitamin Capsule 1 CAP PO (09:06)
--- NOTE | 2020-06-09 12:27 | PM.OBGYDC ---
Discharge Providers CHILDREN'S TUTOR Date of Admission: 06/05/20 18:25 Date of Discharge: 06/09/20 Attending Provider at Admission: Humphrey Christie MD Attending Provider at Discharge: Humphrey Christie MD Primary Care Provider: Chelsea Barber DO Diagnoses at Discharge Discharge Diagnosis (1) delivery, delivered, current hospitalization: Status: Acute (2) Group B Streptococcus carrier state affecting : Status: Acute (3) Large for gestational age fetus affecting management of mother: Status: Acute Qualifiers: Fetus number: single or unspecified fetus Trimester: third trimester Qualified Code(s): O36.63X0 - Maternal care for excessive growth, third trimester, not applicable or unspecified (4) Obesity affecting , antepartum: Status: Acute (5) macrosomia during in third trimester: Status: Acute Qualifiers: Fetus number: single or unspecified fetus Qualified Code(s): O36.63X0 - Maternal care for excessive growth, third trimester, not applicable or unspecified (6) Diabetes in : Status: Acute Qualifiers: Diabetes in type: gestational Gestational diabetes mellitus control: diet-controlled Trimester: third trimester Qualified Code(s): O24.410 - Gestational diabetes mellitus in , diet controlled Reason for Visit Reason for Visit: INDUCTION Hospital Course Hospital Course Ms. Chapin is a 20-year-old, 1, Para 1, with a LMP of 07/21/2019 and an NETO of 06/03/2020 based on 9 week sonogram. complicated by gestational diabetes. She had been admittedfor induction at 39 weeks, left the hospital AGAINST MEDICAL ADVICE. Then she was again admitted for induction second time 40 weeks +2 days. She progressed to full dilation, but failed to descend due to asynclitism presentation. primary low-transverse delivery was performed without complications. she delivered male fetus vertex asynclitic presentation, weight 4355 g, 9/10. Postop observation has been uneventful. Pain is under control. she is tolerating diet well. She is ambulating without difficulty. She is afebrile and hemodynamically stable. Information Peripartum Data: Infant Delivery Method: Section Physical Exam Narrative: EXAM NARRATIVE: GA; alert and oriented x 3 HEENT: normal Breasts: engorged Nipples - skin intact Lungs; clear to auscultation Heart: regular rhythm, no murmurs. Abd: Appropriately tender. BS+. Uterine fundus below umbilicus. No Fundal Tenderness. Incision clean and dry, no redness, pain or edema. Perineum: normal lochia. Extremities: no edema, no cyanosis, no tenderness. Urinary Catheter Management^: Avila Latex: Cath Placed During This Visit: yes, but has since been removed by the nurse Reason for Continuing Indwelling Catheter: Required Immobilization for Trauma or Surgery or Anesthesia Urinary Catheter Date of Insertion: 06/06/20 Urinary Catheter Time of Insertion: 21:15 Date Urinary Catheter Removed: 06/07/20 Time Urinary Catheter Discontinued: 00:49 Discharge Data Data Completed and Pending: Pending at discharge Category Date Time Status PTC COVID [Khanna virus Lab Test PTC ] Routine Lab 06/05/20 20:35 Received Vitals: Last Vital Signs Temp 98.2 F 06/09/20 09:00 Pulse 93 06/09/20 09:00 Resp 17 06/09/20 09:00 BP 117/80 06/09/20 09:00 Pulse Ox 97 06/09/20 06:00 Discharge Plan Discharge Patient Disposition: Home Condition: Stable Prescriptions: [place] 5-325 mg tablet 1 tab PO Q4H PRN (Reason: pain) Qty: 30 RF: 0 ferrous sulfate [Iron (ferrous sulfate)] 325 mg (65 mg iron) tablet 325 mg PO BID Qty: 60 RF: 0 acetaminophen 325 mg capsule 325 mg PO Q4H PRN (Reason: fever or pain) Qty: 60 RF: 0 ibuprofen 800 mg tablet 800 mg PO TID PRN (Reason: pain) Qty: 60 RF: 0 Continued prenat.vits,concepcion,[id number] Tablet 1 tab PO DAILY RF: 0 No Action (DME) blood-glucose meter [Blood Glucose Monitoring] Kit See Rx Instructions .ROUTE .MEDSUPPLY Qty: 1 RF: 0 Discharge Orders: Discharge Order (Routine); Ordered 06/09/20 Ordered By: Humphrey Christie Referrals: Humphrey Christie MD [Physician] - 2 weeks Discharge Diet: As Directed Discharge Activity: Increase activity as tolerated Patient Instructions: Perineal Care (GEN), OB WHC, OB Discharge Report, OB Food/Drug Interaction Guide, Abnormal Bleeding, Depression Activity Restrictions/Additional Instructions: 1. Please call [facility] on next working day to make your post-operative appointment in 2 weeks. 2. Please stay home until you come back to the clinic on first post-operative check up. 3. Please follow instructions on your medications CAREFULLY. 4. If you have abdominal incision, do not cover it unless dressing is necessary because of drainage. OK to shower, but avoid bath. Leave steri-strips until they fall off. If they are still on one week after surgery, you may remove them. 5. If you had vaginal surgery, your doctor may instruct you to take SITZ bath. 6. Yellow, blood tinged odorous vaginal discharge is usually normal after hysterectomy or vaginal surgeries. 7. No sexual intercourse, tampons, or douches for 6 weeks or until you are completely released from the post-operative care. 8. Avoid constipation by eating right and maybe using some Metamucil or Milk of Magnesia. 9. All prescription refills are given during the working hours. Please do no wait till it runs out. Call the clinic at [phone] before your medication runs out. The clinic will get in touch with your doctor to prescribe medications if necessary. 10. Please remain within 40 mile radius from our hospital because emergencies do happen now and then during the post-operative period. 11. If you have stairs at home, take one step at a time slowly and minimize the number of trips. It helps to stay in one floor for the next few days. No lifting except what you can lift by one hand until you are released from the post-operative care. 12. Driving is discouraged until you are well healed. It may be 3-4 weeks before you feel strong enough to drive. You should be able to turn and look through the rear window without pain and you should be able to push the brake pedal very hard without pain before you drive. No fast rules, but SAFETY should be your primary concern. DO NOT drive if you are on sedating medications such as narcotics. 13. Call the clinic (during working hours) to make urgent appointment or go to the Emergency room, if any of the following occurs: i. Vaginal bleeding becomes heavy, more than a period. ii. Incision becomes red and sore, or drains pus. iii. Your temperature is over 100.4 or you have chill. iv. IV site becomes red and swollen (a little ``knot?? is usually OK) v. Persistent nausea and vomiting vi. Persistent constipation or diarrhea vii. Rash or allergic reaction to medications. Discharge Attestations CHILDREN'S TUTOR Time Spent in Discharge Care*: greater than 30 min Coding Level of Care Code Acute Senior Data Quality Analyst for Chg Fwd Diagnoses delivery, delivered, current hospitalization O82 Group B Streptococcus carrier state affecting O99.820 Large for gestational age fetus affecting management of mother O36.63X0 Fetus number: single or unspecified fetus Trimester: third trimester Obesity affecting , antepartum O99.210 macrosomia during in third trimester O36.63X0 Fetus number: single or unspecified fetus Diabetes in O24.410 Diabetes in type: gestational Gestational diabetes mellitus control: diet-controlled Trimester: third trimester
[2020-06-09 13:30] VITALS: BP 128/82; PULSE 105; RESP 16; TEMP 36.8
[2020-06-09 14:13] LABS: Coronavirus Lab Test PTC Negative
== END 2020-06-09 13:35 | disposition home or self-care (01) | DRG 788 ==
PROVIDERS: Admitting Provider Obstetrics & Gynecology; PCP Family Medicine; Visit Provider Obstetrics & Gynecology
PROC: 10D00Z1 Extraction of Products of Conception, Low, Open Approach (ICD-10-PCS; CPT 59514; principal; 2020-06-07 10:40)
DX: O32.4XX0 Maternal care for high head at term, not applicable or unspecified (principal); O99.824 Streptococcus B carrier state complicating childbirth; O36.63X0 Maternal care for excessive fetal growth, third trimester, not applicable or unspecified; O99.214 Obesity complicating childbirth; O24.420 Gestational diabetes mellitus in childbirth, diet controlled; Z3A.40 40 weeks gestation of pregnancy; Z37.0 Single live birth
CPT/HCPCS: 12345; 36415; 36416; 51702; 59025; 59409; 82962; 85025; 85027; 87635; 96374; 96375; C9290; J1885; J2274; J2370; J2405; J2765; J2795; J3010; J3490; J7030